=== PATIENT | male | born 1965 | race Two or more races ===

== ENCOUNTER 2022-08-30 17:23 | Emergency (ER) | payer OTHER ==
[~2022-08-30] VITALS: Ht 177.8 cm; Wt 88.5 kg
[2022-08-30] MEDS ORDERED: HYDROCODONE/APAP 5-325MG TABLET ONE (19:59)
[2022-08-30] MEDS ORDERED: HYDROCODONE/APAP 5-325MG TABLET PO ONE (20:00)
[2022-08-30] MEDS ORDERED: AMOX-430 PO (20:04)
--- NOTE | 2022-08-30 20:15 | NUR ---
Patient discharged to home in stable condition. Pt. given antibiotic rx. Written and verbal after care instructions given. Patient verbalizes understanding of instructions. Instructed pt not to drive. Stressed follow up or return to ER for worsening s/s.
[2022-08-30 20:16] VITALS: BP 131/75
== END 2022-08-30 20:17 | disposition home or self-care (01) ==
LOC: ER 17:23
DX: R51.9 Headache, unspecified (principal); E11.9 Type 2 diabetes mellitus without complications; Z79.84 Long term (current) use of oral hypoglycemic drugs
CPT/HCPCS: A4663